=== PATIENT | male | born 1990 | race Hispanic/Latino ===

== ENCOUNTER 2021-01-07 04:12 | Emergency (ER) | payer MEDICAID, OTHER ==
[~2021-01-07] VITALS: Ht 162.6 cm; Wt 70.8 kg
[2021-01-07 04:21] VITALS: BP 132/78
[2021-01-07 04:23] VITALS: BP 132/78
[2021-01-07] MEDS ORDERED: HYDROXYZINE 50MG VIAL 50 MG/ML VIAL IM SCH (05:00)
== END 2021-01-07 05:18 ==
LOC: EDH 04:12
DX: R06.4 Hyperventilation (principal)
CPT/HCPCS: J3410